=== PATIENT | female | born 1965 | race Caucasian/White ===

== ENCOUNTER 2017-07-11 13:04 | Emergency (ER) | payer MEDICAID ==
[2017-07-11 14:10] VITALS: BP 124/84
[2017-07-11 14:50] LABS: Basophils % (Auto) 0.4 % (0.0-1.8); Eosinophils % (Auto) 3.7 % (0.0-4.3); Hematocrit 40.6 % (30.3-42.9); Hemoglobin 12.9 gm/dl (10.1-14.3); Mean Corpuscular HGB Conc 32 % (30-34); Mean Corpuscular Hemoglobin 28 pg (28-32); Mean Corpuscular Volume 88 fl (79-97); Platelet Count 274 K/mm3 (140-440); Red Blood Count 4.59 M/mm3 (3.65-5.03); Red Cell Distribution Width 14.1 % (13.2-15.2); White Blood Count 9.2 K/mm3 (4.5-11.0)
[2017-07-11 15:10] LABS: Alanine Aminotransferase 12 units/L (7-56); Albumin 3.7 g/dL (3.9-5); Albumin/Globulin Ratio 1.5 %; Alkaline Phosphatase 125 units/L (35-129); Anion Gap 17 mmol/L; BUN/Creatinine Ratio 23.33; Blood Urea Nitrogen 14 mg/dL (7-17); Calcium 8.6 mg/dL (8.4-10.2); Carbon Dioxide 25 mmol/L (22-30); Chloride 111.1 mmol/L (98-107); Glucose 92 mg/dL (65-100); Lipase 24 units/L (13-60); Potassium 3.6 mmol/L (3.6-5.0); Sodium 149 mmol/L (137-145); Total Protein 6.2 g/dL (6.3-8.2)
[2017-07-11 15:28] LABS: Bilirubin,Urine NEG (Negative); Blood,Urine NEG (Negative); Ketones,Urine TR mg/dL (Negative); Leukocyte Esterase,Urine NEG (Negative); Mucus,Urine 1+ /HPF; Nitrite,Urine NEG (Negative); Protein,Urine <15 mg/dL mg/dL (Negative); Urobilinogen,Urine < 2.0 mg/dL (<2.0)
== END 2017-07-11 21:15 | disposition left against medical advice (07) ==
LOC: ED 13:04
DX: R10.9 Unspecified abdominal pain (principal); Z53.21 Procedure and treatment not carried out due to patient leaving prior to being seen by health care provider
CPT/HCPCS: 36415; 80053; 81001; 81025; 82962; 83690; 85025

== ENCOUNTER 2017-07-24 11:20 | Outpatient (CLI) | payer MEDICAID ==
--- NOTE | 2017-07-24 13:00 | Magnetic Resonance Report ---
MRI BRAIN WITHOUT CONTRAST INDICATION: Vertigo. COMPARISON: August [address] FINDINGS: Noncontrast multiplanar and multisequence MRI of the brain demonstrates symmetric ventricles and top normal sulci without acute infarct, hemorrhage, mass effect or midline shift. No abnormal extra-axial masses or fluid collections. Minimal, benign bilateral basal ganglia calcifications. Normal major intracranial vascular flow voids. Normal posterior fossa structures with symmetric seventh and eighth nerve complexes. Symmetric, grossly unremarkable eye globes. Slight ethmoid sinusitis. Otherwise clear imaged paranasal sinuses and mastoid air cells. Normal midline structures without evidence of Chiari malformation. CONCLUSION: No acute intracranial MRI abnormality, as described. Thank you for the opportunity to participate in this patient's care.
== END 2017-07-24 11:21 | disposition home or self-care (01) ==
LOC: MRI 11:20
PROVIDERS: ATTEND Psychiatry & Neurology Neurology
DX: H81.11 Benign paroxysmal vertigo, right ear (principal); G23.8 Other specified degenerative diseases of basal ganglia; J32.2 Chronic ethmoidal sinusitis; I10 Essential (primary) hypertension; E78.00 Pure hypercholesterolemia, unspecified; J44.9 Chronic obstructive pulmonary disease, unspecified; Z87.891 Personal history of nicotine dependence
CPT/HCPCS: 70551

== ENCOUNTER 2017-08-23 11:38 | Outpatient (CLI) | payer MEDICAID ==
--- NOTE | 2017-08-25 07:51 | Magnetic Resonance Report ---
MRI LUMBAR SPINE WITHOUT CONTRAST HISTORY: Lumbosacral radiculopathy. TECHNIQUE: axial T1, T2. sagittal T1,T2, STIR. COMPARISON: None. FINDINGS: The conus terminates at T12-L1. No signal abnormality or mass. The cauda equina is within normal limits. Normal height and alignment of the lumbar vertebra. Normal bone marrow signal. No acute fracture or suspicious bone lesion. There is mild diffuse disc desiccation without significant narrowing. Mild diffuse facet arthropathy. L1-2: No abnormality. L2-3: A mild circumferential bulging disc and mild facet arthropathy are identified. No canal stenosis, herniation or significant neural foraminal narrowing. L3-4: No abnormality. L4-5: A mild posterior bulging disc is identified. A focal right paracentral annular tear without associated protrusion is identified. Mild facet arthropathy. Bilateral neural foraminal narrowing is estimated at 25%. No central canal stenosis. L5-S1: A moderate broad base midline disc protrusion is identified which displaces the anterior thecal sac and appears to mildly displace the left S1 nerve root within the spinal canal. No central canal narrowing. Mild facet arthropathy. No significant neural foraminal stenosis. IMPRESSION: Mild diffuse degenerative disc disease and facet arthropathy. Mild bulging discs at L2-3 and L4-5. Moderate size midline disc protrusion at L5-S1 which appears to exert mild mass effect on the left S1 nerve root within the spinal canal. Correlate for left S1 radiculopathy.
== END 2017-08-23 11:39 | disposition home or self-care (01) ==
LOC: MRI 11:38
PROVIDERS: ATTEND Psychiatry & Neurology Neurology
DX: M51.16 Intervertebral disc disorders with radiculopathy, lumbar region (principal); M12.88 Other specific arthropathies, not elsewhere classified, other specified site; H81.11 Benign paroxysmal vertigo, right ear; G43.109 Migraine with aura, not intractable, without status migrainosus; E11.42 Type 2 diabetes mellitus with diabetic polyneuropathy; G56.02 Carpal tunnel syndrome, left upper limb; I63.8 Other cerebral infarction
CPT/HCPCS: 72148

== ENCOUNTER 2018-03-17 12:58 | Emergency (ER) | payer MEDICAID ==
[2018-03-17 13:48] VITALS: BP 119/67
--- NOTE | 2018-03-17 14:50 | Emergency Department Report ---
HPI - General Chief Complaint: Back Pain/Injury Time Seen by Provider: 03/17/18 14:47 - HPI HPI: patient with chronic back pain, here for mri, sent by back doctor, but she had an mri in august here so she needs the results. patient with h/o neuro symptoms. no loss of bowel or urine. ED Past Medical Hx - Past Medical History Previous Medical History?: Yes Hx Hypertension: Yes (2005) Hx CVA: Yes Hx Diabetes: Yes (2005) Hx GERD: Yes Hx Liver Disease: Yes (FATTY LIVER) Hx Asthma: Yes (1990) Hx COPD: Yes Additional medical history: THYROID - Surgical History Past Surgical History?: Yes Hx Cholecystectomy: Yes Hx Breast Surgery: Yes ("MILK GLAND REMOVED") Additional Surgical History: GASTRIC BYPASS. HYSTERECTOMY - Social History Smoking Status: Former Smoker Substance Use Type: Prescribed - Medications Home Medications: Home Medications Medication Instructions Recorded Confirmed Last Taken Type ALBUTEROL Inhaler [ProAir HFA 1 puff IH PRN PRN 08/06/13 01/04/15 06/10/14 History Inhaler] Hydrochlorothiazide [HCTZ] 25 mg PO QDAY 08/06/13 01/04/15 01/03/15 History Levothyroxine Sodium 100 mcg PO QAM 08/06/13 01/04/15 01/03/15 History [Levothyroxine] Pregabalin [Lyrica] 150 mg PO BID 08/06/13 01/04/15 12/21/14 History Sertraline [Zoloft] 100 mg PO BID 08/06/13 01/04/15 01/03/15 History Amitriptyline [Elavil] 25 mg PO QHS 12/29/14 01/04/15 01/03/15 History Mirtazapine 45 mg PO HS 12/29/14 01/04/15 01/03/15 History Ondansetron [Zofran TAB] 8 mg PO ONCE PRN 12/29/14 01/04/15 12/21/14 History Ranitidine HCl [Zantac 300 MG TAB] 150 mg PO BID 12/29/14 01/04/15 01/03/15 History Topiramate (Nf) [Trokendi XR CAP] 200 mg PO BID 12/29/14 01/04/15 01/03/15 History hydrOXYZINE PAMOATE [hydrOXYzine 100 mg PO Q6H 12/29/14 01/04/15 01/03/15 History Pamoate] HYDROcodone/APAP 5-325 [[place] 1 - 2 each PO Q6HR PRN #20 tablet 06/30/15 Unknown Rx 5-325 mg TAB] Vancomycin 125 mg PO Q6H #56 capsule 06/30/15 Unknown Rx methOCARBAMOL [Robaxin TAB] 500 mg PO Q6H PRN #20 tablet 03/17/18 Unknown Rx ED Review of Systems ROS: Stated complaint: LOWER BACK PAIN/LEG/RIGHTHIP Other details as noted in HPI Constitutional: no symptoms reported Genitourinary: denies: urgency, dysuria Musculoskeletal: back pain Physical Exam - Physical Exam Vital Signs: Vital Signs 03/17/18 13:44 Temperature 98.1 F Pulse Rate 62 Respiratory 18 Rate Blood Pressure 119/67 O2 Sat by Pulse 97 Oximetry Physical Exam: GENERAL APPEARANCE: Well developed, well nourished, alert and cooperative, and appears to be in no acute distress. HEAD: normocephalic. EYES: PERRL, EOMI. Fundi normal, vision is grossly intact. EARS: External auditory canals and tympanic membranes clear, hearing grossly intact. NOSE: No nasal discharge. THROAT: Oral cavity and pharynx normal. No inflammation, swelling, exudate, or lesions. Teeth and gingiva in good general condition. NECK: Neck supple, non-tender without lymphadenopathy, masses or thyromegaly. CARDIAC: Normal S1 and S2. No S3, S4 or murmurs. Rhythm is regular. There is no peripheral edema, cyanosis or pallor. Extremities are warm and well perfused. Capillary refill is less than 2 seconds. No carotid bruits. LUNGS: Clear to auscultation and percussion without rales, rhonchi, wheezing or diminished breath sounds. ABDOMEN: Positive bowel sounds. Soft, nondistended, nontender. No guarding or rebound. No masses. MUSKULOSKELETAL: Adequately aligned spine. ROM intact spine and extremities. No joint erythema or tenderness. Normal muscular development. Normal gait. BACK: Examination of the spine reveals normal gait and posture, no spinal deformity, symmetry of spinal muscles, without tenderness, decreased range of motion or muscular spasm. EXTREMITIES: No significant deformity or joint abnormality. No edema. Peripheral pulses intact. No varicosities. LOWER EXTREMITY: Examination of both feet reveals all toes to be normal in size and symmetry, normal range of motion, normal sensation with distal capillary filling of less than 2 seconds without tenderness, swelling, discoloration, nodules, weakness or deformity; examination of both ankles, knees, legs, and hips reveals normal range of motion, normal sensation without tenderness, swelling, discoloration, crepitus, weakness or deformity. NEUROLOGICAL: CN II-XII intact. Strength and sensation symmetric and intact throughout. Reflexes 2+ throughout. Cerebellar testing normal. SKIN: Skin normal color, texture and turgor with no lesions or eruptions. PSYCHIATRIC: The mental examination revealed the patient was oriented to person , place, and time. The patient was able to demonstrate good judgement and reason , without hallucinations, abnormal affect or abnormal behaviors during the examination. Patient is not suicidal. ED Course Vital Signs 03/17/18 13:44 Temperature 98.1 F Pulse Rate 62 Respiratory 18 Rate Blood Pressure 119/67 O2 Sat by Pulse 97 Oximetry Critical care attestation.: If time is entered above; I have spent that time in minutes in the direct care of this critically ill patient, excluding procedure time. ED Disposition Clinical Impression: Chronic back pain Qualifiers: Back pain location: low back pain Back pain laterality: bilateral Sciatica presence: without sciatica Qualified Code(s): M54.5 - Low back pain; G89.29 - Other chronic pain Disposition: TO HOME OR SELFCARE Is pt being admited?: No Does the pt Need Aspirin: No Condition: Stable Prescriptions: methOCARBAMOL [Robaxin TAB] 500 mg PO Q6H PRN #20 tablet PRN Reason: Pain Referrals: PRIMARY CARE, [Primary Care Provider] - 3-5 Days
== END 2018-03-17 15:05 | disposition home or self-care (01) ==
LOC: ED 12:58
DX: M54.5 Low back pain (principal); I10 Essential (primary) hypertension; E11.9 Type 2 diabetes mellitus without complications; K21.9 Gastro-esophageal reflux disease without esophagitis; J45.909 Unspecified asthma, uncomplicated; Z90.49 Acquired absence of other specified parts of digestive tract; Z98.84 Bariatric surgery status; Z90.710 Acquired absence of both cervix and uterus; Z87.891 Personal history of nicotine dependence
CPT/HCPCS: 99282

== ENCOUNTER 2018-08-25 09:25 | Outpatient (CLI) | payer MEDICAID ==
--- NOTE | 2018-08-26 10:27 | XRay Report ---
FINAL REPORT PROCEDURE: XRAY C-SPINE COMPLETE TECHNIQUE: Cervical spine radiographs, minimum of four views, including AP, lateral, both oblique, and open-mouth odontoid projections. HISTORY: Spondylosis without myelopathy or radiculopathy, cervical region COMPARISON: No prior studies are available for comparison. FINDINGS: The vertebral body heights and alignment are maintained. There are degenerative disc changes predominantly from C3-4 through C6-7, with anterior osteophyte formation. The prevertebral soft tissues are within normal limits in thickness. Disc spaces are preserved. No bony neural foraminal narrowing is seen. Odontoid process is intact. IMPRESSION: No acute fracture or subluxation is seen
--- NOTE | 2018-08-26 10:27 | XRay Report ---
FINAL REPORT PROCEDURE: XRAY SACROILIAC JOINTS > 3 VIEWS TECHNIQUE: Sacroiliac joints, three views HISTORY: Spondylosis without myelopathy or radiculopathy, cervical region COMPARISON: No prior studies are available for comparison. FINDINGS: The sacroiliac joints are intact bilaterally. There is mild bilateral iliac wing sclerosis abutting the sacroiliac joint. IMPRESSION: Mild bilateral sclerosis
--- NOTE | 2018-08-26 10:27 | XRay Report ---
FINAL REPORT PROCEDURE: XRAY HIP COMPLETE BILATERAL TECHNIQUE: AP view of the pelvis and bilateral lateral views of the hips HISTORY: Spondylosis without myelopathy or radiculopathy, cervical region COMPARISON: No prior studies are available for comparison. FINDINGS: No fracture or focal osseous lesion is seen. Hip joints are intact. IMPRESSION: No fracture is seen
== END 2018-08-25 09:26 | disposition home or self-care (01) ==
LOC: XRAY 09:25
PROVIDERS: ATTEND Anesthesiology
DX: M47.812 Spondylosis without myelopathy or radiculopathy, cervical region (principal); M51.17 Intervertebral disc disorders with radiculopathy, lumbosacral region; M34.89 Other systemic sclerosis; K21.9 Gastro-esophageal reflux disease without esophagitis; I10 Essential (primary) hypertension; E78.00 Pure hypercholesterolemia, unspecified; J44.9 Chronic obstructive pulmonary disease, unspecified; E66.9 Obesity, unspecified; E11.9 Type 2 diabetes mellitus without complications; E03.9 Hypothyroidism, unspecified; Z90.49 Acquired absence of other specified parts of digestive tract; Z90.710 Acquired absence of both cervix and uterus
CPT/HCPCS: 72050; 72202; 73521

== ENCOUNTER 2019-05-02 14:12 | Emergency (ER) | payer MEDICAID ==
[2019-05-02 15:21] LABS: Hemoglobin 13.5 gm/dl (10.1-14.3); Mean Corpuscular HGB Conc 34 % (30-34); Mean Corpuscular Volume 88 fl (79-97); Platelet Count 311 K/mm3 (140-440); Red Blood Count 4.56 M/mm3 (3.65-5.03); Red Cell Distribution Width 13.7 % (13.2-15.2)
[2019-05-02 15:30] LABS: Alanine Aminotransferase 17 units/L (7-56); Albumin 3.7 g/dL (3.9-5); BUN/Creatinine Ratio 19; Blood Urea Nitrogen 13 mg/dL (7-17); Calcium 9.6 mg/dL (8.4-10.2); Hemolysis Index 1
[2019-05-02 15:31] LABS: INR 0.98 (0.87-1.13); Partial Thromboplastin Time 29.1 Sec. (24.2-36.6)
--- NOTE | 2019-05-02 15:35 | Event Note ---
ED Screening Note Date of service: 05/02/19 Time: 15:34 ED Screening Note: 54 y/o female comes in for left leg pain that for 2 days. No trauma to leg. Worst with lying down. Lung pain with deep breath. No BC, hx/o of breast CA no long travels. history of poor circulation. This initial assessment/diagnostic orders/clinical plan/treatment(s) is/are subject to change based on patients health status, clinical progression and re- assessment by fellow clinical providers in the ED. Further treatment and workup at subsequent clinical providers discretion. Patient/guardian urged not to elope from the ED as their condition may be serious if not clinically assessed and managed. Initial orders include:
--- NOTE | 2019-05-02 16:24 | XRay Report ---
PROCEDURE: XR CHEST ROUTINE 2V TECHNIQUE: PA and lateral chest radiographs were obtained. HISTORY: lung pain COMPARISONS: None. FINDINGS: Heart: Normal. Mediastinum/Vessels: Normal. Lungs/Pleural space: Normal. Bony thorax: No acute osseous abnormality. IMPRESSION: Normal examination. This document is electronically signed by Russ Wang MD., May 02 2019 04:23:06 PM ET
[2019-05-02] MEDS ORDERED: NORCO 5/325 PO ONE (17:33)
--- NOTE | 2019-05-02 18:18 | Emergency Department Report ---
HPI - General Chief Complaint: Extremity Injury, Lower Time Seen by Provider: 05/02/19 17:25 - HPI HPI: Is a 54-year-old female presents to the ED complaining of left lower leg pain that started yesterday. Patient states that pain is worsening and she is experiencing some migrating pain up her anterior thigh. Patient denies any injury, falls, trauma. Patient states a history of DVTs that she was scared and she came into the ER to be evaluated. She denies swelling to the lower leg, fever, shortness of breath, cough, chest pain. ED Past Medical Hx - Past Medical History Hx Hypertension: Yes (2005) Hx CVA: Yes Hx Diabetes: Yes (2005) Hx GERD: Yes Hx Liver Disease: Yes (FATTY LIVER) Hx Asthma: Yes (1990) Hx COPD: Yes Additional medical history: dvt,THYROID - Surgical History Hx Cholecystectomy: Yes Hx Breast Surgery: Yes ("MILK GLAND REMOVED") Additional Surgical History: GASTRIC BYPASS. HYSTERECTOMY - Social History Smoking Status: Never Smoker - Medications Home Medications: Home Medications Medication Instructions Recorded Confirmed Last Taken Type ALBUTEROL Inhaler (OR & NICU) 1 puff IH PRN PRN 08/06/13 01/04/15 06/10/14 History [ProAir HFA Inhaler] Levothyroxine Sodium 100 mcg PO QAM 08/06/13 01/04/15 01/03/15 History [Levothyroxine] Pregabalin [Lyrica] 150 mg PO BID 08/06/13 01/04/15 12/21/14 History Sertraline [Zoloft] 100 mg PO BID 08/06/13 01/04/15 01/03/15 History hydroCHLOROthiazide [HCTZ] 25 mg PO QDAY 08/06/13 01/04/15 01/03/15 History Amitriptyline [Elavil] 25 mg PO QHS 12/29/14 01/04/15 01/03/15 History Mirtazapine 45 mg PO HS 12/29/14 01/04/15 01/03/15 History Ondansetron (Nf) [Zofran TAB] 8 mg PO ONCE PRN 12/29/14 01/04/15 12/21/14 History Topiramate (Nf) [Trokendi XR CAP] 200 mg PO BID 12/29/14 01/04/15 01/03/15 History hydrOXYzine pamoate [hydrOXYzine 100 mg PO Q6H 12/29/14 01/04/15 01/03/15 History Pamoate] raNITIdine HCl [Zantac 300 MG TAB] 150 mg PO BID 12/29/14 01/04/15 01/03/15 History HYDROcodone/APAP 5-325 [[place] 1 - 2 each PO Q6HR PRN #20 tablet 06/30/15 Unknown Rx 5-325 mg TAB] Vancomycin 125 mg PO Q6H #56 capsule 06/30/15 Unknown Rx methOCARBAMOL [Robaxin TAB] 500 mg PO Q6H PRN #20 tablet 03/17/18 Unknown Rx Cyclobenzaprine [Flexeril] 10 mg PO QHS PRN #20 tablet 05/02/19 Unknown Rx Ibuprofen [Motrin] 800 mg PO Q8HR #30 tablet 05/02/19 Unknown Rx ED Review of Systems ROS: Stated complaint: LT LEG PAIN Other details as noted in HPI Comment: All other systems reviewed and negative Physical Exam - Physical Exam Vital Signs: Vital Signs 05/02/19 05/02/19 14:25 17:40 Temperature 97.9 F Pulse Rate 72 Respiratory 17 18 Rate Blood Pressure 130/70 [Right] O2 Sat by Pulse 100 Oximetry Physical Exam: GENERAL: Alert and oriented x3, no apparent distress, Normal Gait, atraumatic. HEAD: Head is normocephalic and a-traumatic. LUNGS: Symetrical with respiration, No wheezing, no rales or crackles, CTAB. HEART: S1, S2 present, regular rate and rhythm without murmur, no rubs, no gallops. Non tender to palpation EXTREMITIES/MUSCULOSKELETAL: No cyanosis, clubbing, rash, lesions or edema. Full ROM bilaterally. UE/LE Pulses 2+ bilaterally. LE and UE 5+ strength bilaterally, straight leg raise negative bilaterally, Homans sign negative, nontender to palpation of the left calf. No swelling noted on the left calf, NEUROLOGIC: The patient is cooperative with no focal neurologic deficits. SKIN: Warm and dry, No lesions, No ulceration or induration present. ED Course Vital Signs 05/02/19 05/02/19 14:25 17:40 Temperature 97.9 F Pulse Rate 72 Respiratory 17 18 Rate Blood Pressure 130/70 [Right] O2 Sat by Pulse 100 Oximetry ED Medical Decision Making - Lab Data Result diagrams: 05/02/19 14:36 05/02/19 14:36 Laboratory Last Values WBC 8.1 K/mm3 (4.5-11.0) 05/02/19 14:36 RBC 4.56 M/mm3 (3.65-5.03) 05/02/19 14:36 Hgb 13.5 gm/dl (10.1-14.3) 05/02/19 14:36 Hct 40.0 % (30.3-42.9) 05/02/19 14:36 MCV 88 fl (79-97) 05/02/19 14:36 MCH 30 pg (28-32) 05/02/19 14:36 MCHC 34 % (30-34) 05/02/19 14:36 RDW 13.7 % (13.2-15.2) 05/02/19 14:36 Plt Count 311 K/mm3 (140-440) 05/02/19 14:36 PT 12.7 Sec. (12.2-14.9) 05/02/19 14:36 INR 0.98 (0.87-1.13) 05/02/19 14:36 APTT 29.1 Sec. (24.2-36.6) 05/02/19 14:36 202.91 ng/mlDDU (0-234) 05/02/19 14:36 Sodium 142 mmol/L (137-145) 05/02/19 14:36 Potassium 3.5 mmol/L (3.6-5.0) L 05/02/19 14:36 Chloride 107.5 mmol/L (98-107) H 05/02/19 14:36 Carbon Dioxide 22 mmol/L (22-30) 05/02/19 14:36 16 mmol/L 05/02/19 14:36 BUN 13 mg/dL (7-17) 05/02/19 14:36 0.7 mg/dL (0.7-1.2) 05/02/19 14:36 Estimated GFR > 60 ml/min 05/02/19 14:36 19 % 05/02/19 14:36 Glucose 101 mg/dL (65-100) H 05/02/19 14:36 Calcium 9.6 mg/dL (8.4-10.2) 05/02/19 14:36 0.20 mg/dL (0.1-1.2) 05/02/19 14:36 AST 17 units/L (5-40) 05/02/19 14:36 ALT 17 units/L (7-56) 05/02/19 14:36 141 units/L (35-129) H 05/02/19 14:36 6.8 g/dL (6.3-8.2) 05/02/19 14:36 3.7 g/dL (3.9-5) L 05/02/19 14:36 1.2 % 05/02/19 14:36 - Radiology Data FINDINGS: Heart: Normal. Mediastinum/Vessels: Normal. Lungs/Pleural space: Normal. Bony thorax: No acute osseous abnormality. IMPRESSION: Normal examination. This document is electronically signed by Russ Becerra MD., May 02 2019 04:23:06 PM ET Transcribed By: SUSAN Dictated By: DINORAH BECERRA MD Electronically Authenticated By: DINORAH BECERRA MD Signed Date/Time: 05/02/19 5504 - Medical Decision Making C4-year-old female presents with lower leg pain. CBC, BMP, PTT, d-dimer all negative. Chest x-ray negative Discussed this findings with the patient. Discussed the patient this could be muscular in nature. Vital signs are normal she is in no acute distress. Patient received pain medication in the ED. Discussed follow-up with primary care physician. Critical care attestation.: If time is entered above; I have spent that time in minutes in the direct care of this critically ill patient, excluding procedure time. ED Disposition Clinical Impression: Lower extremity pain, left, Muscle strain Disposition: DC-01 TO HOME OR SELFCARE Is pt being admited?: No Does the pt Need Aspirin: No Condition: Stable Instructions: Arthralgia (ED), Muscle Strain (ED), Musculoskeletal Pain (ED) Additional Instructions: Make sure to follow up with the primary care physician as discussed. Take all your medications as you've been prescribed. If you have any worsening symptoms or develop new symptoms please return to ED immediately. Prescriptions: Cyclobenzaprine [Flexeril] 10 mg PO QHS PRN #20 tablet PRN Reason: Muscle Spasm Ibuprofen [Motrin] 800 mg PO Q8HR #30 tablet Referrals: HARITHA LIMA MD [Primary Care Provider] - 3-5 Days Forms: Work/School Release Form(ED) Time of Disposition: 18:18
[2019-05-02 22:44] VITALS: BP 133/76
== END 2019-05-02 22:47 | disposition home or self-care (01) ==
LOC: ED 14:12
DX: S86.912A Strain of unspecified muscle(s) and tendon(s) at lower leg level, left leg, initial encounter (principal); I10 Essential (primary) hypertension; E11.9 Type 2 diabetes mellitus without complications; K21.9 Gastro-esophageal reflux disease without esophagitis; J44.9 Chronic obstructive pulmonary disease, unspecified; Z90.49 Acquired absence of other specified parts of digestive tract; Z90.710 Acquired absence of both cervix and uterus; X58.XXXA Exposure to other specified factors, initial encounter; Y93.89 Activity, other specified; Y92.89 Other specified places as the place of occurrence of the external cause; Y99.8 Other external cause status
CPT/HCPCS: 36415; 71046; 80053; 85027; 85379; 85610; 85730

== ENCOUNTER 2019-05-28 13:06 | Emergency (ER) | payer MEDICAID ==
--- NOTE | 2019-05-28 13:20 | Event Note ---
ED Screening Note ED Screening Note: pt presents for LLQ abd pain that began yesterday pt states she has rectal bleeding states she noticed when she wiped had a colonscopy last month, and had diverticulitis +nausea no vomiting has not had a BM in 5 days took miralax without relief no urinary sx PMHx DM, HTN, depression, anxiety, asthma allergy: PCN, NSAIDs This initial assessment/diagnostic orders/clinical plan/treatment(s) is/are subject to change based on patients health status, clinical progression and re- assessment by fellow clinical providers in the ED. Further treatment and workup at subsequent clinical providers discretion. Patient/guardian urged not to elope from the ED as their condition may be serious if not clinically assessed and managed. Initial orders include: UA, labs, XR abdomen
[2019-05-28 13:46] LABS: Basophils % (Auto) 0.3 % (0.0-1.8); Eosinophils # (Auto) 0.2 K/mm3 (0.0-0.4); Eosinophils % (Auto) 2.1 % (0.0-4.3); Hematocrit 42.4 % (30.3-42.9); Hemoglobin 14.3 gm/dl (10.1-14.3); Lymphocytes # (Auto) 2.1 K/mm3 (1.2-5.4); Lymphocytes % (Auto) 24.9 % (13.4-35.0); Mean Corpuscular HGB Conc 34 % (30-34); Mean Corpuscular Volume 87 fl (79-97); Monocytes # (Auto) 0.6 K/mm3 (0.0-0.8); Monocytes % (Auto) 6.9 % (0.0-7.3); Platelet Count 279 K/mm3 (140-440); Red Blood Count 4.88 M/mm3 (3.65-5.03); Red Cell Distribution Width 13.4 % (13.2-15.2)
[2019-05-28 14:03] LABS: Alanine Aminotransferase 17 units/L (7-56); Albumin 4.2 g/dL (3.9-5); BUN/Creatinine Ratio 17; Blood Urea Nitrogen 12 mg/dL (7-17); Calcium 9.8 mg/dL (8.4-10.2); Hemolysis Index 11
[2019-05-28 14:16] LABS: Bilirubin,Urine NEG (Negative); Blood,Urine NEG (Negative); Color,Urine Yellow (Yellow); Mucus,Urine 1+ /HPF; Protein,Urine <15 mg/dL mg/dL (Negative); Urobilinogen,Urine < 2.0 mg/dL (<2.0)
--- NOTE | 2019-05-28 15:10 | XRay Report ---
ABDOMEN 2 VIEW(S) INDICATION / CLINICAL INFORMATION: abd pain, constipation. COMPARISON: None available. FINDINGS: TUBES / LINES: None. BOWEL GAS PATTERN: There is a large stool throughout the length of the colon. No dilated bowel, fluid levels or free air. FREE AIR / EXTRALUMINAL GAS: None seen. ADDITIONAL FINDINGS: Cholecystectomy changes are noted. IMPRESSION: 1. Moderate fecal retention. Signer Name: Brett Nieves Jr, MD Signed: 05/28/2019 3:05 PM Workstation Name: [id number]
--- NOTE | 2019-05-28 16:27 | Emergency Department Report ---
ED Abdominal Pain HPI - General Chief Complaint: Abdominal Pain Stated Complaint: ABD PAIN/RECTAL BLEEDING Time Seen by Provider: 05/28/19 13:15 Source: patient Mode of arrival: Ambulatory Limitations: No Limitations - History of Present Illness Initial Comments: pt presents for LLQ abd pain that began yesterday pt states she has rectal bleeding states she noticed when she wiped had a colonscopy last month, and had diverticulitis +nausea no vomiting has not had a BM in 5 days took miralax without relief no urinary sx PMHx DM, HTN, depression, anxiety, asthma allergy: PCN, NSAIDs MD Complaint: abdominal pain Onset/Timin -: days(s) Location: LLQ Radiation: none Severity scale (0 -10): 8 Quality: aching, fullness, sharp Consistency: intermittent Improves With: nothing Worsens With: nothing Context: recent surgery/procedure Associated Symptoms: nausea, constipation. denies: vomiting - Related Data Home Medications Medication Instructions Recorded Confirmed Last Taken ALBUTEROL Inhaler (OR & NICU) 1 puff IH PRN PRN 08/06/13 01/04/15 06/10/14 [ProAir HFA Inhaler] Levothyroxine Sodium 100 mcg PO QAM 08/06/13 01/04/15 01/03/15 [Levothyroxine] Pregabalin [Lyrica] 150 mg PO BID 08/06/13 01/04/15 12/21/14 Sertraline [Zoloft] 100 mg PO BID 08/06/13 01/04/15 01/03/15 hydroCHLOROthiazide [HCTZ] 25 mg PO QDAY 08/06/13 01/04/15 01/03/15 Amitriptyline [Elavil] 25 mg PO QHS 12/29/14 01/04/15 01/03/15 Mirtazapine 45 mg PO HS 12/29/14 01/04/15 01/03/15 Ondansetron (Nf) [Zofran TAB] 8 mg PO ONCE PRN 12/29/14 01/04/15 12/21/14 Topiramate (Nf) [Trokendi XR CAP] 200 mg PO BID 12/29/14 01/04/15 01/03/15 hydrOXYzine pamoate [hydrOXYzine 100 mg PO Q6H 12/29/14 01/04/1501/03/15 Pamoate] raNITIdine HCl [Zantac 300 MG TAB] 150 mg PO BID 12/29/14 01/04/15 01/03/15 Previous Rx's Medication Instructions Recorded Last Taken Type HYDROcodone/APAP 5-325 [[place] 1 - 2 each PO Q6HR PRN #20 tablet 06/30/15 Unknown Rx 5-325 mg TAB] Vancomycin 125 mg PO Q6H #56 capsule 06/30/15 Unknown Rx methOCARBAMOL [Robaxin TAB] 500 mg PO Q6H PRN #20 tablet 03/17/18 Unknown Rx Cyclobenzaprine [Flexeril] 10 mg PO QHS PRN #20 tablet 05/02/19 Unknown Rx Ibuprofen [Motrin] 800 mg PO Q8HR #30 tablet 05/02/19 Unknown Rx Ciprofloxacin HCl [Ciprofloxacin 500 mg PO Q12HR #20 tab 05/28/19 Unknown Rx TAB] Docusate Sodium [Colace] 100 mg PO BID PRN 10 Days #60 05/28/19 Unknown Rx capsule Polyethylene Glycol 3350 [Miralax 17 gm PO BID #1 box 05/28/19 Unknown Rx 3350] metroNIDAZOLE [Flagyl] 500 mg PO Q8HR #30 tablet 05/28/19 Unknown Rx Allergies Allergy/AdvReac Type Severity Reaction Status Date / Time Penicillins Allergy Severe Rash,ITCHIN Verified 05/28/19 13:08 G,HIVES Latex, Natural Rubber Allergy RASH,HIVES, Verified 05/28/19 13:08 ITCHING aspirin AdvReac ULCERS Verified 05/28/19 13:08 ED Review of Systems ROS: Stated complaint: ABD PAIN/RECTAL BLEEDING Other details as noted in HPI Comment: All other systems reviewed and negative Gastrointestinal: abdominal pain, nausea, constipation, hematochezia. denies: vomiting ED Past Medical Hx - Past Medical History Hx Hypertension: Yes (2005) Hx CVA: Yes Hx Diabetes: Yes (2005) Hx GERD: Yes Hx Liver Disease: Yes (FATTY LIVER) Hx Asthma: Yes (1990) Hx COPD: Yes Additional medical history: dvt,THYROID - Surgical History Hx Cholecystectomy: Yes Hx Breast Surgery: Yes ("MILK GLAND REMOVED") Additional Surgical History: GASTRIC BYPASS. HYSTERECTOMY - Social History Smoking Status: Never Smoker - Medications Home Medications: Home Medications Medication Instructions Recorded Confirmed Last Taken Type ALBUTEROL Inhaler (OR & NICU) 1 puff IH PRN PRN 08/06/13 01/04/15 06/10/14 History [ProAir HFA Inhaler] Levothyroxine Sodium 100 mcg PO QAM 08/06/13 01/04/15 01/03/15 History [Levothyroxine] Pregabalin [Lyrica] 150 mg PO BID 08/06/13 01/04/15 12/21/14 History Sertraline [Zoloft] 100 mg PO BID 08/06/13 01/04/15 01/03/15 History hydroCHLOROthiazide [HCTZ] 25 mg PO QDAY 08/06/13 01/04/15 01/03/15 History Amitriptyline [Elavil] 25 mg PO QHS 12/29/14 01/04/15 01/03/15 History Mirtazapine 45 mg PO HS 12/29/14 01/04/15 01/03/15 History Ondansetron (Nf) [Zofran TAB] 8 mg PO ONCE PRN 12/29/14 01/04/15 12/21/14 History Topiramate (Nf) [Trokendi XR CAP] 200 mg PO BID 12/29/14 01/04/15 01/03/15 History hydrOXYzine pamoate [hydrOXYzine 100 mg PO Q6H 12/29/14 01/04/15 01/03/15 History Pamoate] raNITIdine HCl [Zantac 300 MG TAB] 150 mg PO BID 12/29/14 01/04/15 01/03/15 History HYDROcodone/APAP 5-325 [[place] 1 - 2 each PO Q6HR PRN #20 tablet 06/30/15 Unknown Rx 5-325 mg TAB] Vancomycin 125 mg PO Q6H #56 capsule 06/30/15 Unknown Rx methOCARBAMOL [Robaxin TAB] 500 mg PO Q6H PRN #20 tablet 03/17/18 Unknown Rx Cyclobenzaprine [Flexeril] 10 mg PO QHS PRN #20 tablet 05/02/19 Unknown Rx Ibuprofen [Motrin] 800 mg PO Q8HR #30 tablet 05/02/19 Unknown Rx Ciprofloxacin HCl [Ciprofloxacin 500 mg PO Q12HR #20 tab 05/28/19 Unknown Rx TAB] Docusate Sodium [Colace] 100 mg PO BID PRN 10 Days #60 05/28/19 Unknown Rx capsule Polyethylene Glycol 3350 [Miralax 17 gm PO BID #1 box 05/28/19 Unknown Rx 3350] metroNIDAZOLE [Flagyl] 500 mg PO Q8HR #30 tablet 05/28/19 Unknown Rx ED Physical Exam - General Limitations: No Limitations General appearance: alert, in no apparent distress - Head Head exam: Present: atraumatic, normocephalic - Eye Eye exam: Present: normal appearance - ENT ENT exam: Present: mucous membranes moist - Neck Neck exam: Present: normal inspection - GI/Abdominal GI/Abdominal exam: Present: soft, tenderness, normal bowel sounds. Absent: distended - Rectal Rectal exam: Present: normal inspection - Extremities Exam Extremities exam: Present: normal inspection - Back Exam Back exam: Present: normal inspection - Neurological Exam Neurological exam: Present: alert, oriented X3 - Psychiatric Psychiatric exam: Present: normal affect, normal mood - Skin Skin exam: Present: warm, dry, intact, normal color. Absent: rash ED Medical Decision Making - Lab Data Result diagrams: 05/28/19 13:34 05/28/19 13:34 - Radiology Data Radiology results: report reviewed Patient: WILFRIDO GARSIA MR#: [id number] : 1965 Acct:[id number] Age/Sex: 54 / F ADM Date: 05/28/19 Loc: ED Attending Dr: Ordering Physician: ELIZABETH STAPLETON Date of Service: 05/28/19 Procedure(s): XR abdomen 2V Accession Number(s): [id number] cc: ELIZABETH STAPLETON Fluoro Time In Minutes: ABDOMEN 2 VIEW(S) INDICATION / CLINICAL INFORMATION: abd pain, constipation. COMPARISON: None available. FINDINGS: TUBES / LINES: None. BOWEL GAS PATTERN: There is a large stool throughout the length of the colon. No dilated bowel, fluid levels or free air. FREE AIR / EXTRALUMINAL GAS: None seen. ADDITIONAL FINDINGS: Cholecystectomy changes are noted. IMPRESSION: 1. Moderate fecal retention. Signer Name: Brett Nieves Jr, MD Signed: 05/28/2019 3:05 PM Workstation Name: [id number] Transcribed By: TTR Dictated By: BRETT NIEVES JR, MD Electronically Authenticated By: BRETT NIEVES JR, MD Signed Date/Time: 05/28/19 1505 DD/ 1504 TD/TT: Critical care attestation.: If time is entered above; I have spent that time in minutes in the direct care of this critically ill patient, excluding procedure time. ED Disposition Clinical Impression: Diverticulitis, Constipation Disposition: PAT REG,NO TRIAGE Is pt being admited?: No Condition: Stable Instructions: Abdominal Pain (ED) Additional Instructions: Please completed antibiotics as prescribed. Take constipation medicine as prescribed. Follow up with her GI provider in the next 3-5 days. Prescriptions: Ciprofloxacin HCl [Ciprofloxacin TAB] 500 mg PO Q12HR #20 tab Docusate Sodium [Colace] 100 mg PO BID PRN 10 Days #60 capsule PRN Reason: Constipation metroNIDAZOLE [Flagyl] 500 mg PO Q8HR #30 tablet Polyethylene Glycol 3350 [Miralax 3350] 17 gm PO BID #1 box Referrals: RANDOLPH BELL MD [Primary Care Provider] - 3-5 Days Forms: Work/School Release Form(ED)
[2019-05-28 16:46] VITALS: BP 123/87
== END 2019-05-28 16:50 | disposition home or self-care (01) ==
LOC: ED 13:06
DX: K57.92 Diverticulitis of intestine, part unspecified, without perforation or abscess without bleeding (principal); K59.00 Constipation, unspecified; I10 Essential (primary) hypertension; E11.9 Type 2 diabetes mellitus without complications; K21.0 Gastro-esophageal reflux disease with esophagitis; J44.9 Chronic obstructive pulmonary disease, unspecified; Z86.73 Personal history of transient ischemic attack (TIA), and cerebral infarction without residual deficits; Z90.49 Acquired absence of other specified parts of digestive tract; Z90.710 Acquired absence of both cervix and uterus; Z98.890 Other specified postprocedural states; Z79.899 Other long term (current) drug therapy; Z88.0 Allergy status to penicillin; Z88.8 Allergy status to other drugs, medicaments and biological substances; Z88.6 Allergy status to analgesic agent; Z91.040 Latex allergy status
CPT/HCPCS: 36415; 74019; 80053; 81001; 83690; 85025; 99283

== ENCOUNTER 2021-12-18 07:02 | Day surgery (SDC) | payer MEDICAID ==
[~2021-12-18 07:02] MED LIST: BUPIVACAINE/PF (0.5%) 5 MG/1 ML 30 ML VIAL INFILTRATI ONE; LIDOCAINE (1%) 10 MG/1 ML VIAL 20 ML MDV ONE
[2021-12-18] MEDS ORDERED: BUPIVACAINE/PF (0.5%) 5 MG/1 ML 30 ML VIAL INFILTRATI ONE (08:11)
[2021-12-18] MEDS ORDERED: LIDOCAINE (1%) 10 MG/1 ML VIAL 20 ML MDV INFILTRATI ONE (08:11)
[2021-12-18 09:46] VITALS: BP 122/75
[2021-12-18] MEDS ORDERED: MIDAZOLAM 10 MG/5 ML ORAL LIQD PO NR (10:00)
--- NOTE | 2021-12-18 15:38 | Procedure Note ---
Date of procedure: 12/18/21 Pre-op diagnosis: back cyst Post-op diagnosis: same Procedure: excision of back cyst Findings: Indication: Patient is a 56 yo F who presented to the office for a workup of a back cyst that had been growing in size and becoming more uncomfortable. The patient was set up for an elective excision. After all risks were discussed and questions answered, consent was signed in the office. Procedure in detail: Patient was identified in the preoperative area, taken back to the minor procedure room and positioned supine on the stretcher. Local anesthetic was injected into the skin at the intended incision site. An elliptical incision was made in the skin over the cyst using a 15 blade. Dissection was carried down through the skin using the blade and hemostat. The cyst was identified. Using a combination of blunt dissection with a hemostat and sharp dissection with iris scissors, the cyst wall was carefully dissected away from the surrounding tissue circumferentially. Once normal fatty tissue was identified the cyst wall in its entirety was removed from the subcutaneous tissue using Bovie electrocautery. This was then passed off the table as a specimen. The wound was then irrigated and hemostasis achieved with jairo ctrocautery. Once hemostasis was ensured, the deep dermal layer was closed using interrupted 3-0 Vicryl sutures. The skin was closed with 4-0 Monocryl subcuticular stitches and skin glue. At the end of the case, all sponge, instrument, sharp counts were correct 2. The patient was taken to PACU in stable condition. Anesthesia: local Surgeon: EVETTE CHU Estimated blood loss: minimal Pathology: list (cyst of back) Specimen disposition: to lab Condition: stable Disposition: PACU
== END 2021-12-18 07:03 | disposition home or self-care (01) ==
LOC: OR 07:02
PROVIDERS: ATTEND Surgery
DX: R22.2 Localized swelling, mass and lump, trunk (principal); L72.0 Epidermal cyst; E11.9 Type 2 diabetes mellitus without complications; E03.9 Hypothyroidism, unspecified; F41.9 Anxiety disorder, unspecified; K21.9 Gastro-esophageal reflux disease without esophagitis; M19.90 Unspecified osteoarthritis, unspecified site; G43.909 Migraine, unspecified, not intractable, without status migrainosus; I10 Essential (primary) hypertension; E78.00 Pure hypercholesterolemia, unspecified; J44.9 Chronic obstructive pulmonary disease, unspecified; Z90.49 Acquired absence of other specified parts of digestive tract; Z98.890 Other specified postprocedural states; Z98.84 Bariatric surgery status; Z79.84 Long term (current) use of oral hypoglycemic drugs; Z98.891 History of uterine scar from previous surgery; Z90.710 Acquired absence of both cervix and uterus; Z88.8 Allergy status to other drugs, medicaments and biological substances; Z98.42 Cataract extraction status, left eye; Z88.6 Allergy status to analgesic agent; Z79.899 Other long term (current) drug therapy; Z91.040 Latex allergy status; Z98.41 Cataract extraction status, right eye; Z87.442 Personal history of urinary calculi; Z88.0 Allergy status to penicillin; Z86.73 Personal history of transient ischemic attack (TIA), and cerebral infarction without residual deficits
CPT/HCPCS: 11402; 12031; 82962; 88304; J3490